=== PATIENT | female | born 1990 | race American Indian/Alaskan Native ===

== ENCOUNTER 2020-04-09 21:23 | Emergency (ER) | payer SELFPAY ==
[2020-04-09 22:06] LABS: Basophils % (Auto) 0.3 % (0.0-1.8); Eosinophils # (Auto) 0.2 K/mm3 (0.0-0.4); Eosinophils % (Auto) 1.4 % (0.0-4.3); Hematocrit 40.7 % (30.3-42.9); Hemoglobin 13.7 gm/dl (10.1-14.3); Lymphocytes # (Auto) 2.3 K/mm3 (1.2-5.4); Lymphocytes % (Auto) 19.1 % (13.4-35.0); Mean Corpuscular HGB Conc 34 % (30-34); Mean Corpuscular Volume 91 fl (79-97); Monocytes # (Auto) 0.8 K/mm3 (0.0-0.8); Monocytes % (Auto) 6.2 % (0.0-7.3); Platelet Count 233 K/mm3 (140-440); Red Blood Count 4.48 M/mm3 (3.65-5.03); Red Cell Distribution Width 13.4 % (13.2-15.2)
[2020-04-09 22:27] LABS: Alanine Aminotransferase 12 units/L (7-56); Albumin 4.2 g/dL (3.9-5); Blood Urea Nitrogen 11 mg/dL (7-17); Calcium 9.4 mg/dL (8.4-10.2); Hemolysis Index 15
[2020-04-09 22:27] LABS: Bilirubin,Urine NEG (Negative); Blood,Urine LG (Negative); Color,Urine Yellow (Yellow); Urobilinogen,Urine < 2.0 mg/dL (<2.0)
[2020-04-09 22:28] LABS: WBC,Urine < 1.0 /HPF (0.0-6.0)
[2020-04-09 22:29] LABS: BUN/Creatinine Ratio 16
--- NOTE | 2020-04-09 23:22 | Ultrasound Report ---
ULTRASOUND OBSTETRIC INDICATION / CLINICAL INFORMATION: vaginal bleeding in . TECHNIQUE: Transabdominal and Transvaginal. COMPARISON: None available. FINDINGS: No intrauterine is identified. Endometrial stripe measures 1 cm, which is normal for the pa tient's age. The uterus measures 8.0 x 4.1 x 4.7 cm Normal follicles are seen in both ovaries with normal blood flow. There is no free fluid in the pelvi s. IMPRESSION: 1. No intrauterine identified. 2. Normal appearance of ovaries. No free fluid in the pelvis. Signer Name: Simon Lobato MD Signed: 04/09/2020 11:17 PM Workstation Name: [id number]
--- NOTE | 2020-04-10 02:02 | Emergency Department Report ---
ED General Adult HPI - General Chief complaint: Abdominal Pain Stated complaint: ABD PAIN/3WKS /BLEEDING Time Seen by Provider: 04/09/20 23:36 Source: patient Mode of arrival: Ambulatory Limitations: Language Barrier (Patient's friend interpreted) - History of Present Illness Initial comments: 29-year-old female presents with complaints of vaginal bleeding and lower abdominal pain x yesterday. Patient states that she also had a positive test at home today. LMP was 02/23/2020 per patient. She states she is G1, . She rates her current pain as a 3/10 in severity and states she has used 1 pad today. She also reports she passed 1 large blood clot. She denies any dysuria/hematuria/urinary frequency, vaginal discharge/dyspareunia, fever/chills/sweats, or changes in her stools. Patient also denies any chest pain, shortness of breath, or dizziness/lightheadedness - Related Data Allergies Allergy/AdvReac Type Severity Reaction Status Date / Time No Known Allergies Allergy Verified 04/09/20 21:31 ED Review of Systems ROS: Stated complaint: ABD PAIN/3WKS /BLEEDING Other details as noted in HPI Constitutional: denies: chills, fever Respiratory: denies: shortness of breath Cardiovascular: denies: chest pain Endocrine: denies: excessive sweating Gastrointestinal: abdominal pain. denies: nausea, vomiting, diarrhea, constipation Genitourinary: denies: urgency, dysuria, frequency, hematuria, discharge, dyspareunia Neurological: denies: headache Hematological/Lymphatic: denies: easy bleeding, easy bruising ED Past Medical Hx - Past Medical History Previous Medical History?: No - Surgical History Past Surgical History?: No - Social History Smoking Status: Never Smoker Substance Use Type: None ED Physical Exam - General Limitations: No Limitations General appearance: alert, in no apparent distress, obese - Head Head exam: Present: atraumatic, normocephalic - Eye Eye exam: Present: normal appearance. Absent: scleral icterus - Respiratory Respiratory exam: Present: normal lung sounds bilaterally. Absent: respiratory distress - Cardiovascular Cardiovascular Exam: Present: regular rate, normal rhythm - GI/Abdominal GI/Abdominal exam: Present: soft, normal bowel sounds. Absent: distended, tenderness, guarding, rebound, rigid, mass - Extremities Exam Extremities exam: Present: normal inspection - Back Exam Back exam: Present: normal inspection - Neurological Exam Neurological exam: Present: alert, oriented X3 - Psychiatric Psychiatric exam: Present: normal affect, normal mood - Skin Skin exam: Present: warm, dry, intact, normal color. Absent: rash, cyanosis, diaphoretic, ecchymosis ED Course Vital Signs 04/09/20 21:27 Temperature 98.8 F Pulse Rate 66 Respiratory 12 Rate Blood Pressure 115/72 O2 Sat by Pulse 97 Oximetry ED Medical Decision Making - Lab Data Result diagrams: 04/09/20 21:44 04/09/20 21:44 - Radiology Data Radiology results: report reviewed ULTRASOUND OBSTETRIC INDICATION / CLINICAL INFORMATION: vaginal bleeding in . TECHNIQUE: Transabdominal and Transvaginal. COMPARISON: None available. FINDINGS: No intrauterine is identified. Endometrial stripe measures 1 cm, which is normal for the patient's age. The uterus measures 8.0 x 4.1 x 4.7 cm Normal follicles are seen in both ovaries with normal blood flow. There is no free fluid in the pelvis. IMPRESSION: 1. No intrauterine identified. 2. Normal appearance of ovaries. No free fluid in the pelvis. - Medical Decision Making 29-year-old female presents with complaints of vaginal bleeding and lower abdominal pain x yesterday. Patient states that she also had a positive test at home today. LMP was 02/23/2020 per patient. She states she is G1, . She rates her current pain as a 3/10 in severity and states she has used 1 pad today. She also reports she passed 1 large blood clot. She denies any dysuria/hematuria/urinary frequency, vaginal discharge/dyspareunia, fever/chills/sweats, or changes in her stools. Abdomen is nontender and nondistended on exam without rebound or guarding. H&H is stable on CBC. UA is negative for infection. Beta-hCG = 106. OB ultrasound is normal and is negative for IUP. Patient is O-, RhoGam given. Findings appear to be consistent with miscarriage. Patient informed to return to ED in 2 days for repeat beta hCG. Follow-up with [facility] in 5 days recommended. Her vitals are normal, she is well-appearing, and stable for discharge home. Strict return precautions were discussed in great detail with patient who verbalizes understanding. Critical care attestation.: If time is entered above; I have spent that time in minutes in the direct care of this critically ill patient, excluding procedure time. ED Disposition Clinical Impression: Threatened miscarriage Disposition: DC-01 TO HOME OR SELFCARE Is pt being admited?: No Condition: Stable Instructions: Threatened Miscarriage (ED) Additional Instructions: Return to the emergency department in 2 days for repeat beta hCG test Referrals: RUBÉN BURNS MD [Staff Physician] - 3-5 Days
[2020-04-10 05:46] VITALS: BP 107/79
== END 2020-04-10 05:58 | disposition home or self-care (01) ==
LOC: ED 21:23
DX: O20.0 Threatened abortion (principal); Z3A.01 Less than 8 weeks gestation of pregnancy
CPT/HCPCS: 36415; 76801; 76817; 80053; 81001; 84702; 85025; 86850; 86900; 86901

== ENCOUNTER 2020-04-13 20:07 | Emergency (ER) | payer SELFPAY ==
[2020-04-13 20:13] VITALS: BP 124/71
[2020-04-13 20:37] LABS: Bilirubin,Urine NEG (Negative); Blood,Urine LG (Negative); Color,Urine Red (Yellow); Mucus,Urine 1+ /HPF; Urobilinogen,Urine < 2.0 mg/dL (<2.0)
[2020-04-13 20:38] LABS: RBC,Urine > 182.0 /HPF (0.0-6.0)
[2020-04-13 20:40] LABS: Basophils # (Auto) 0.1 K/mm3 (0.0-0.1); Basophils % (Auto) 0.8 % (0.0-1.8); Eosinophils # (Auto) 0.2 K/mm3 (0.0-0.4); Eosinophils % (Auto) 1.3 % (0.0-4.3); Hemoglobin 12.9 gm/dl (10.1-14.3); Lymphocytes % (Auto) 33.7 % (13.4-35.0); Mean Corpuscular HGB Conc 34 % (30-34); Mean Corpuscular Volume 89 fl (79-97); Monocytes # (Auto) 0.8 K/mm3 (0.0-0.8); Platelet Count 253 K/mm3 (140-440); Red Blood Count 4.26 M/mm3 (3.65-5.03); Red Cell Distribution Width 13.2 % (13.2-15.2)
--- NOTE | 2020-04-13 21:50 | Ultrasound Report ---
ULTRASOUND OBSTETRIC INDICATION / CLINICAL INFORMATION: vaginal bleeding. TECHNIQUE: Transabdominal. COMPARISON: 04/09/2020 FINDINGS: No intrauterine is identified. The uterus appears within normal limits measuring 5.7 x 3.7 x 4.7 cm. Endometrial thickness measures 6 mm. There is no definitive evidence of ectopic in this exam. ADNEXA: Bilateral ovaries are not visualized on this exam secondary to overlying bowel gas. However, bilateral ovaries appear normal on the prior exam dated 04/09/2020. FREE FLUID: None. ADDITIONAL FINDINGS: None. IMPRESSION: 1. No evidence of intrauterine is identified. This is unchanged from prior exam dated 2019. Correlation with serum hCG values is recommended. Signer Name: Bob Lopez MD Signed: 04/13/2020 9:45 PM Workstation Name: [id number]
[2020-04-13] MEDS ORDERED: ACETAMINOPHEN W/CODEINE 300-30 MG TAB PO ONE (22:50)
--- NOTE | 2020-04-13 22:54 | Emergency Department Report ---
<FOREIGNROBINMarquisDARÍO - Last Filed: 04/13/20 22:50> ED Female HPI - General Chief complaint: Vaginal Bleeding Stated complaint: 5 WEEKS PREG BLEEDING Source: patient Mode of arrival: Ambulatory Limitations: Language Barrier - History of Present Illness Initial comments: Patient is a A1 29-year-old female who is approximately 4 to 5-week gestation who presents to the ED with complaint of acute onset persistent pelvic pain with vaginal bleeding for the last 2 hours. Patient describes the pain as cramping, sharp and persistent with vaginal bleeding and nausea. Patient states that she was initially evaluated in this ED about 4 days ago and had all lab test which showed that she may have been and that the ultrasound was inconclusive. Patient denies vomiting, fever, chills, cough, dysuria, urinary frequency and urgency, dizziness, syncope, headache, chest pain or shortness of breath, diarrhea or low back pain, heavy lifting or traumatic injury. MD Complaint: vaginal bleeding, pelvic pain -: Sudden, hour(s) (2) Location: suprapubic, other (vaginal) Radiation: non-radiating Severity: moderate Severity scale (0 -10): 6 Quality: cramping, sharp Consistency: constant Improves with: none Worsens with: none Are you Now?: Yes (Approx 5 weeks gestation) Associated Symptoms: denies other symptoms, vaginal bleeding, abdominal pain (suprapubic), nausea/vomiting. denies: vaginal discharge, fever/chills, headaches, loss of appetite, dysuria, hematuria, shortness of breath, syncope, weakness, other - Related Data Sexually active: Yes : 2 Para: 0 A: 1 Previous Rx's Medication Instructions Recorded Last Taken Type Acetaminophen [Tylenol] 500 mg PO Q6HR PRN #30 tablet 04/13/20 Unknown Rx Allergies Allergy/AdvReac Type Severity Reaction Status Date / Time No Known Allergies Allergy Verified 04/09/20 21:31 ED Review of Systems Constitutional: denies: chills, fever Eyes: denies: eye pain, eye discharge, vision change ENT: denies: ear pain, throat pain Respiratory: denies: cough, shortness of breath, wheezing Cardiovascular: denies: chest pain, palpitations Endocrine: no symptoms reported Gastrointestinal: abdominal pain (Suprapubic). denies: nausea, vomiting, diarrhea, constipation, hematemesis, melena, hematochezia Genitourinary: abnormal menses (Vaginal bleeding). denies: urgency, dysuria, discharge Musculoskeletal: denies: back pain, joint swelling, arthralgia Skin: denies: rash, lesions Neurological: denies: headache, weakness, paresthesias Psychiatric: denies: anxiety, depression Hematological/Lymphatic: denies: easy bleeding, easy bruising ED Past Medical Hx - Past Medical History Previous Medical History?: No - Surgical History Past Surgical History?: No - Social History Smoking Status: Never Smoker Substance Use Type: None - Medications Home Medications: Home Medications Medication Instructions Recorded Confirmed Last Taken Type Acetaminophen [Tylenol] 500 mg PO Q6HR PRN #30 tablet 04/13/20 Unknown Rx ED Physical Exam - General Limitations: Language Barrier General appearance: alert, in no apparent distress - Head Head exam: Present: atraumatic, normocephalic, normal inspection - Eye Eye exam: Present: normal appearance, PERRL, EOMI Pupils: Present: normal accommodation - ENT ENT exam: Present: normal exam, normal orophraynx, mucous membranes moist, TM's normal bilaterally. Absent: normal external ear exam - Neck Neck exam: Present: normal inspection, full ROM - Respiratory Respiratory exam: Present: normal lung sounds bilaterally. Absent: respiratory distress, wheezes, rhonchi, chest wall tenderness, accessory muscle use, decreased breath sounds - Cardiovascular Cardiovascular Exam: Present: regular rate, normal rhythm, normal heart sounds. Absent: systolic murmur, diastolic murmur, rubs, gallop - GI/Abdominal GI/Abdominal exam: Present: soft, tenderness (Palpable mild suprapubic tenderness), normal bowel sounds. Absent: guarding, rebound, hyperactive bowel sounds, hypoactive bowel sounds, organomegaly - Bi-manual exam: Present: other (Pelvic exam deferred) - Extremities Exam Extremities exam: Present: normal inspection, full ROM, normal capillary refill - Back Exam Back exam: Present: normal inspection, full ROM. Absent: tenderness, CVA tenderness (R), CVA tenderness (L), muscle spasm, vertebral tenderness - Neurological Exam Neurological exam: Present: alert, oriented X3, CN II-XII intact, normal gait, reflexes normal - Psychiatric Psychiatric exam: Present: normal affect, normal mood - Skin Skin exam: Present: warm, dry, intact, normal color. Absent: rash ED Medical Decision Making - Lab Data Result diagrams: 04/13/20 20:21 - Radiology Data Radiology results: report reviewed, image reviewed Findings [facility] [address] [place] [address] Ultrasound Report Signed Patient: RAMESH BONILLA MR #: [id number] : 1990 Acct:[id number] Age/Sex: 29 / F ADM Date: 04/13/20 Loc: ED Attending Dr: Ordering Physician: ROBIN RAO MD Date of Service: 04/13/20 Procedure(s): US OB <= 14 wk fetus add gest Accession Number(s): [id number] cc: ED MD JALEN ULTRASOUND OBSTETRIC INDICATION / CLINICAL INFORMATION: vaginal bleeding. TECHNIQUE: Transabdominal. COMPARISON: 04/09/2020 FINDINGS: No intrauterine is identified. The uterus appears within normal limits measuring 5.7 x 3.7 x 4.7 cm. Endometrial thickness measures 6 mm. There is no definitive evidence of ectopic in this exam. ADNEXA: Bilateral ovaries are not visualized on this exam secondary to overlying bowel gas. However, bilateral ovaries appear normal on the prior exam dated 04/09/2020. FREE FLUID: None. ADDITIONAL FINDINGS: None. IMPRESSION: 1. No evidence of intrauterine is identified. This is unchanged from prior exam dated 04/09/2020. Correlation with serum hCG values is recommended. Signer Name: Bob Luque MD Signed: 04/13/2020 9:45 PM Workstation Name: [id number] Transcribed By: Dictated By: BOB LUQUE Electronically Authenticated By: BOB LUQUE Signed Date/Time: 04/13/202144 DD/ 38 TD/TT: - Medical Decision Making This is a A1 29-year-old female who is approximately 4 to 5-week gestation who presents to the ED with complaint of acute onset persistent pelvic pain with vaginal bleeding for the last 2 hours. Patient describes the pain as cramping, sharp and persistent with vaginal bleeding and nausea. Patient states that she was initially evaluated in this ED about 4 days ago and had all lab test which showed that she may have been and that the ultrasound was inconclusive. In the ED, patient is alert and oriented x3 and is not in distress with normal vital signs. Lab test results were reviewed and showed acute leukocytosis of 12,000. The hCG quant was 78.93 and urinalysis was characterized by large amount of blood. The patient blood type was O negative. Transvaginal ultrasound showed no evidence of intrauterine is identified. This is unchanged from prior exam dated 04/09/2020. Correlation with serum hCG values is recommended. The hCG quant performed 4 days ago was 106. Patient was discharged home and advised to take Tylenol as needed for pain and to follow-up with [facility] physician in 2 days for serial hCG quant studies repeat and for further evaluation. Patient was advised to return to the ED immediately if symptoms get worse. - Differential Diagnosis Threatened miscarriage; subchorionic bleed; ectopic ; UTI ED Disposition Clinical Impression: Threatened miscarriage, Vaginal bleeding in Abdominal pain in Qualifiers: Trimester: first trimester Qualified Code(s): O26.891 - Other specified related conditions, first trimester Disposition: - TO HOME OR SELFCARE Is pt being admited?: No Does the pt Need Aspirin: No Condition: Stable Instructions: Threatened Miscarriage (ED) Additional Instructions: Mantenga un reposo plvico completo, tome Tylenol segn sea necesario para el dolor y mary un seguimiento con chou mdico obstetra / gineclogo Dr. Belle dentro de las 48 horas para georges reevaluacin. Regrese al servicio de urgencias inmediatamente si los sntomas empeoran. Prescriptions: Acetaminophen [Tylenol] 500 mg PO Q6HR PRN #30 tablet PRN Reason: Pain , Severe (7-10) Referrals: PRIMARY CARE,MD [Primary Care Provider] - 3-5 Days Time of Disposition: 23:00 Print Language: PARAGUAYAN <SUSANNA FLOWERS III - Last Filed: 04/14/20 05:07> ED Review of Systems ROS: Stated complaint: 5 WEEKS PREG BLEEDING Other details as noted in HPI ED Course Vital Signs 04/13/20 04/13/20 20:11 23:10 Temperature 98.9 F Pulse Rate 57 L 63 Respiratory 18 15 Rate Blood Pressure 124/71 O2 Sat by Pulse 96 97 Oximetry - Reevaluation(s) Reevaluation #1: I reviewed the findings and management of this patient in real-time and I have personally seen and examined this patient and participated in the decision making for this patient with the midlevel. Patient is a 29-year-old female that presents emergency room with complaints of vaginal bleeding and abdominal pain. Patient abdominal pain is in her lower abdomen. Patient had an ultrasound 4 da ys ago which showed possible early IUP. Patient's pain was improving after being discharged from the ER. Patient's vaginal bleeding also had stopped. Patient's pain and vaginal bleeding returned. Patient states hCG decreased from her previous ER visit. Patient had a repeat ultrasound and it showed no IUP. Patient's clinical findings are consistent with a spontaneous miscarriage and decreasing hCG. I examined the patient. Patient had mild suprapubic tenderness. Patient's lung sounds are clear. Patient's CV exam shows normal heart sounds. I discussed all results and clinical findings with patient. I discussed plan of care with patient. Patient agrees with plan of care. Patient is stable for discharge. Patient will be discharged home. Patient given discharge instructions. Patient voiced understanding of discharge instructions. 04/13/20 [id number] ED Medical Decision Making - Lab Data Result diagrams: 04/13/20 20:21 Critical care attestation.: If time is entered above; I have spent that time in minutes in the direct care of this critically ill patient, excluding procedure time. ED Disposition Is pt being admited?: No Does the pt Need Aspirin: No
== END 2020-04-13 23:10 | disposition home or self-care (01) ==
LOC: ED 20:07
DX: O20.0 Threatened abortion (principal); Z3A.01 Less than 8 weeks gestation of pregnancy; Z79.899 Other long term (current) drug therapy
CPT/HCPCS: 36415; 76802; 81001; 84702; 85025; 86900; 86901